=== PATIENT | female | born 1975 | race Caucasian/White ===

== ENCOUNTER 2021-01-13 10:53 | Outpatient (CLI) | payer OTHER | END 2021-01-13 10:54 | disposition home or self-care (01) | LOC: CSHMAMMO 10:53 | PROVIDERS: ATTEND Family Medicine | DX: Z12.31 Encounter for screening mammogram for malignant neoplasm of breast (principal); Z80.3 Family history of malignant neoplasm of breast | CPT/HCPCS: 77063; 77067 ==

== ENCOUNTER 2022-01-18 09:40 | Outpatient (CLI) | payer OTHER | END 2022-01-18 09:41 | disposition home or self-care (01) | LOC: CSHMAMMO 09:40 | PROVIDERS: ATTEND Family Medicine | DX: Z12.31 Encounter for screening mammogram for malignant neoplasm of breast (principal); Z80.3 Family history of malignant neoplasm of breast | CPT/HCPCS: 77063; 77067 ==

== ENCOUNTER 2024-03-13 11:14 | Outpatient (CLI) | payer OTHER | END 2024-03-13 11:15 | disposition home or self-care (01) | LOC: CSHMAMMO 11:14 | PROVIDERS: ATTEND Family Medicine | DX: Z12.31 Encounter for screening mammogram for malignant neoplasm of breast (principal); Z80.3 Family history of malignant neoplasm of breast | CPT/HCPCS: 77063; 77067 ==

== ENCOUNTER 2025-04-08 11:50 | Outpatient (CLI) | payer OTHER | END 2025-04-08 11:51 | disposition home or self-care (01) | LOC: CSHMAMMO 11:50 | PROVIDERS: ATTEND Family Medicine | DX: Z12.31 Encounter for screening mammogram for malignant neoplasm of breast (principal); Z80.3 Family history of malignant neoplasm of breast | CPT/HCPCS: 77063; 77067 ==